=== PATIENT | female | born 1985 | race Caucasian/White ===

== ENCOUNTER 2024-12-14 09:28 | Day surgery (SDC) | payer SELFPAY ==
[2024-12-14] VITALS (7 sets, daily range): BP systolic 94–111; BP diastolic 54–80; PULSE 78–99; RESP 14–16; TEMP 2.2–37.4; O2SAT 97–100; BMI 24.2
--- NOTE | 2024-12-14 09:43 | PCM.PRE.AN2 ---
ASA Classification* ASA Classification ASA Classification: 2 Assessment & Plan Anesthesia* Anesthesia Assessment Anesthesia Assessment: Discussed sedation and/or anesthesia options, risks, benefits, and alternatives with patient/parents/legal guardian/POA. Questions invited. The patient/parents/legal guardian/POA seems to understand and agrees to proceed with anesthesia plan. Reviewed the physical assessment, medical history, allergy history and patient home medications list prior to surgery/procedure/anesthetic and documented any changes. Performed airway and anesthesia risk assessments. Anesthesia Type Anesthesia Type: MAC Anesthesia Focused Assessment* Airway Assessment Mouth opens: >3 cm Mallampati Score: II Focused Labs Anesthesia Preop lab: CBC CHEMISTRY COAG Pre-Assessment Diagnosis/Proposed Procedure Planned Operative Procedure(s): EXCISION LEFT AXILLA LIPOMA Anesthesia History Anesthesia History - strategic communications specialist: Anesthesia History - strategic communications specialist Hx Hospitalization No 11/30/24 08:22 Any Problems With Anesthesia No 11/30/24 08:22 Cholinesterase deficiency No 11/30/24 08:22 You/Your Family Experience No 11/30/24 08:22 fever (hyperthermia) with Relationship Recent Exposure to Contagious Disease Does patient have nerve No 11/30/24 08:22 stimulator Patient instructed to have device shut off --Does patient have Pacemaker or ICD? When Was Last Pacemaker Check QUESTION #4 FULL TEXT: You/Your Family Experience fever (hyperthermia) with Anesthesia Last Oral Intake Last Oral intake: Last Oral Intake NPO since Meds taken in AM with sips of water? Meds patient instructed to take am of surgery PONV PONV - strategic communications specialist: PONV - strategic communications specialist Female Yes 11/30/24 08:22 HX of Motion Sickness Yes 11/30/24 08:22 HX of N/V After Surgery No 11/30/24 08:22 Non-Smoker Yes 11/30/24 08:22 Duration of Surgery greater No 11/30/24 08:22 than 60 minutes Number of Risk Factors 3 11/30/24 08:22 PONV Score Moderate Risk 11/30/24 08:22 Height & Weight Height & Weight: Anesthesia: Height & Weight Height 5 ft 2 in 11/20/24 13:09 Respiratory Assessment Respiratory Assessment - strategic communications specialist: Respiratory Tract Infection Hx - strategic communications specialist Hx Respiratory Tract Infection No 11/30/24 08:22 STOP Sleep Apnea STOP Sleep Apnea - strategic communications specialist: STOP Sleep Apnea - strategic communications specialist Hx Hypertension No 11/30/24 08:22 Hx Sleep Apnea No 11/30/24 08:22 CPAP BIPAP Do you snore loudly (louder No 11/30/24 08:22 than talking or can be heard Do you often feel tired/ No 11/30/24 08:22 fatigued/ sleepy during daytime? Has anyone observed you stop No 11/30/24 08:22 breathing during sleep? STOP Results Negative 11/30/24 08:22 QUESTION #5 FULL TEXT : Do you snore loudly (louder than talking or can be heard through closed doors)? Tobacco Use History Tobacco Use History - strategic communications specialist: Tobacco Use History - strategic communications specialist Tobacco Use Smoking Status Never smoker 11/30/24 08:22 Hx Tobacco Use No 11/30/24 08:22 Years Smoking Packs Smoked per Day Smoking Cessation Date was within the last 15 years Hx Smoking Cessation Date Hx Smoking Cessation Counseling Hematologic Medial History Hematologic Hx - strategic communications specialist: Hematologic Medical Hx - wrecker operator Hx of Blood Transfusion No 11/30/24 08:22 Hx of Transfusion in last 3 No 11/30/24 08:22 Months Date of Last Transfusion (if within last 3 months) Ever experience any problems No 11/30/24 08:22 with transfusion(s)? Specify any problems Hx of Preganancy in last 3 No 11/30/24 08:22 Months Nurse Filling Out Transfusion DSCHRIBER 11/30/24 08:22 & Questions: Date: 11/30/24 11/30/24 08:22 Time: 08:24 11/30/24 08:22 Patient unable to answer at this time (ie. confused, unrespo /Reproduction History /Reproductive History - strategic communications specialist: /Reproductive Hx- strategic communications specialist Hx Now No 11/30/24 08:22 Gestational Age (in weeks): EDC: Hx Hx Para Hx Section SAB No 11/30/24 08:22 Active Medications Active Medications: Current Medications Generic Name Dose Route Start Last Admin Trade Name Freq PRN Reason Stop Dose Admin Cefazolin Sodium 2 gm/ N/A 20 mls @ 400 mls/hr 12/14/24 11:05 IV 12/14/24 11:07 PREOP ONE PFSH Medical History Wears glasses Wears dentures Restless legs Back pain Migraine headache Non-smoker Leg cramps Home Medications ?Medication ?Instructions ?Recorded ?Last Taken ?Type ascorbic acid (vitamin C) 1,000 mg 1 g PO QDAY 11/20/24 Unknown History capsule digestive enzymes 1 cap PO QDAY 11/20/24 Unknown History super supplement 1 cap PO DAILY 11/20/24 Unknown History dimenhydrinate 50 mg tablet 50 mg PO Q6H PRN motion sickness 11/30/24 Unknown History (Dramamine) Allergy/AdvReac Type Severity Reaction Status Date / Time No Known Allergies Allergy Verified 11/30/24 08:19 Family History Mother Hypertension Thyroid disorder Grandmother CVA (cerebral vascular accident) Aunt Diabetes Surgical History History of hysteroscopy History of umbilical hernia repair History of Social History Smoking Status: Never smoker Review of Systems (Anesthesia) ROS Narrative System reviewed and no additional complaints, except as documented.
--- NOTE | 2024-12-14 10:34 | HP.PCM_ITS ---
History and Physical Date of Admission: 12/14/24 Intake Vital Signs 11/20/2512:09 Height 5 ft 2 in Weight: 134 lb BMI 24.5 BP 110/73 Blood Pressure Location Rt brachial Position Sitting Respiration 18 Pulse 81 Pulse Source Monitor Temp 97 F L Temp Source Temporal Pulse Oximetry (%) 98 Oxygen Delivery Method room air Intake Visit Reasons: CYST UNDER ARMPIT Chief Complaint: cyst in axilla Is patient in pain?: No Allergies No Known Allergies Allergy (Verified 11/30/24 08:19) Medications ?Medication ?Instructions ?Recorded ?Confirmed ?Type ascorbic acid (vitamin C) 1,000 mg 1 g PO QDAY 11/20/24 11/30/24 History capsule digestive enzymes 1 cap PO QDAY 11/20/24 11/30/24 History super supplement 1 cap PO DAILY 11/20/24 11/30/24 History dimenhydrinate 50 mg tablet 50 mg PO Q6H PRN motion sickness 5 11/30/24 History (Dramamine) PFSH Medical History (Updated 11/30/24 @ 08:28 by Clarisa Jacobsen) Wears glasses Wears dentures Restless legs Back pain Migraine headache Non-smoker Leg cramps Surgical History (Updated 11/30/24 @ 08:28 by Clarisa Jacobsen) History of hysteroscopy History of umbilical hernia repair History of Family History (Updated 11/20/24 @ 13:09 by Marly Hernandez) Mother Hypertension Thyroid disorderGrandmother CVA (cerebral vascular accident)Aunt Diabetes Social History Smoking Status: Never smoker HPI HPI HPI: The patient has a mass on her left axilla. She says it has been growing. It is soft and nontender. ROS General General: No weight change, appetite, fatigue, colon cancer, breast cancer or weakness HEENT HEENT: No difficulty swallowing, eye injury, eye surgery, swollen glands or hoarseness Endo Endocrine: No thyroid disease, diabetes mellitus, thyroid cancer, Hair loss, heat intolerance or cold intolerance Skin Skin: No rash or changing moles Breast Breast: No left breast lump, right breast lump, nipple discharge, breast pain, abnormal mammogram, abnormal US or breast enlargement Musc Musculoskeletal: No back problems, arthritis, rheumatoid arthritis, gout or joint pain Cardio Cardiovascular: No murmur, pacemaker, heart disease, atrial fibrillation, high blood pressure, heart attack, heart stent, palpitations, shortness of breat with exertion or chest pain Psych Psychiatric: No depression, anxiety or hearing voices Resp Respiratory: No shortness of breath, No sleep apnea, No cough, No COPD, No asthma, No emphysema and No wheezing Gastro Gastrointestinal: No abdominal pain, No nausea or vomiting, No diarrhea, No constipation, No blood in stool, No acid reflux, No hemorrhoids, No ulcers, No gallbladder problem and No black,tarry stools [place] Hematologic: No blood thinners, No blood disorders, No bleeding, No anemia and No blood clots Neuro Neurologic: No system reviewed and no additional complaints, except as docume nted, No as per HPI, No abnormal gait, No abnormal hearing, No abnormal movements, No abnormal speech, No behavioral changes, No burning sensations, No confusion, No convulsions, No disequilibrium, No dizziness, No localized weakness, No frequent falls, No headache(s), No lack of coordination, No loss of vision, No memory loss, No numbness, No other visual disturbances, No radicular pain, No restless legs, No sensory deficit, No syncope, No tingling, No tremor(s), No weakness and No other Exam Const General: cooperative Orientation: alert and oriented x3 HENMT Head: normal to inspection Neck Neck: normal visual inspection and full ROM Chest Chest palpation & inspection: normal inspection of the chest Resp Effort & Inspection: normal respiratory effort Auscultation: clear to auscultation bilaterally Cardio Rate: regular rate Rhythm: regular rhythm GI Inspection: non-distended Palpation: soft and nontender Skin General: no rashes or lesions noted Neuro General: patient alert and patient oriented x3 Extrem General: full ROM Psych Appearance: grossly normal Mental Status: mental status grossly normal Assessment and Plan Assessment and Plan (1) Mass of left axilla: Status: Acute Plan: The patient has a large fatty mass that is outside of the axilla but in the axillary area. It is subcutaneous and I believe it is a large lipoma. She would like it removed as it is continuing to grow and is difficult to have full mobility. I discussed excising it and sent it for pathology. I discussed the risks including not limited to bleeding, infection, injury to nerves. Patient understands the risks and is willing to proceed. Jamie Josue MD Pager: [facility] [address] [place] [address], [address] [place] [address] Office: I have examined the patient and the H&P has been reviewed. There are no clinical changes since date of exam.
[2024-12-14] MEDS: Cefazolin 2 GM in Syringe IV (10:38)
--- NOTE | 2024-12-14 11:00 | LIP_PTH ---
PATIENT: ABI SRINIVASAN LOC: [facility] U#:[id number] AGE/SX: 39/F ROOM: RE12/14/[address]: Dr. Jamie Josue MD : 1985 BED: DIS: 12/14/2024 SPEC #: [id number] RECD: 12/14/24 13:31 STATUS: BOB RETanner #: [id number] FRANCA: 12/14/24 11:[address]: Jamie Josue DEPT: SURGICAL PATHOLOGY RECD BY: Gabriela Phillips ENTERED: 12/14/24 13:50 SP TYPE: LIPOMA OTHR DR: Starr Zamarripa, HOOK[facility] UP-C Tissues: Soft tissues, NOS Procedures: Surgery Specimen Level III HEADER OPERATION: Excision left axilla lipoma PRE-OP DIAGNOSIS: Mass of left axilla, post mass of left axilla TISSUE SUBMITTED: Left axilla lipoma MICROSCOPIC DIAGNOSIS Left axilla lipoma, excision: Mature adipose tissue consistent with lipoma. 12/15/2024 MICROSCOPIC DESCRIPTION Slides are reviewed. GROSS DESCRIPTION Received in fixative is one container labeled with the patient's name and designated lipoma. The specimen consists of an irregular piece of adipose tissue measuring 7 x 6.5 x 3 cm. Sections reveal yellow adipose cut surfaces without areas of hemorrhage, necrosis or cystic degeneration. Elementary Instructional Coach sections are submitted in four cassettes. 12/14/2024 TC:1 CPT:22727
[2024-12-14] MEDS: Lidocaine 1% /Epi 1:100 (20ml) 20 ML Vial (11:05)
--- NOTE | 2024-12-14 11:11 | OP.PCM_ITS ---
Operative Report (Standard) Operative Information Date of Procedure: 12/14/24 Pre-Operative Diagnosis: Left axillary lipoma Post-Operative Diagnosis: Left axillary lipoma Surgery/Procedure Performed: Left axillary lipoma removal licensed optical dispenser: No Type of Anesthesia: Local MAC RN Documented Start/Stop Times: Operation Date: 12/14/24 11:00 Case Time Into Pre-Op 12/14/24 09:46 Anesthesia Start 12/14/24 10:38 Into Room 12/14/24 10:38 Procedure Start 12/14/24 10:55 Procedure End 12/14/24 11:07 Anesthesia End 12/14/24 11:11 Out of Room 12/14/24 11:11 Procedure Start Time: 10:55 Procedure Stop Time: 11:07 Select all DRAINS/GRAFTS/IMPLANTS that apply: None Estimated Blood Loss: 5 Specimen collected: Yes Description of specimen(s) removed: Left axillary lipoma Description of surgery: Patient was brought back to the operating room and MAC anesthesia was induced. The left axillary area was prepped and draped in usual sterile fashion. The mass was located just posterior to the axilla. An area overlying was injected with local anesthesia. Incision was made with a scalpel and deepened to the subcutaneous fat. Electrocautery was used to gain hemostasis. It was dissected free circumferentially using electrocautery and sharp dissection. It was sent for pathology. The cavity was inspected and hemostasis was obtained using electrocautery. The area was irrigated and suctioned dry and there was good hemostasis. The dermis was closed with interrupted 3-0 Vicryl sutures. The skin was closed with a running 4-0 Monocryl suture. Dermabond was applied. Patient was taken to PACU in stable condition Surgical Findings: 6 cm lipoma Complications Complications: No Admit VTE Documentation VTE Mechan Device Prophylaxis: SCD's
--- NOTE | 2024-12-14 11:15 | PCM.POST.ANE ---
Anesthesia: Postop Eval I Current Vital Signs Temperature: 36 F Pulse Rate: 78 Blood Pressure: 97/54 Respiratory Rate: 16 Pulse Ox: 97 Oxygen Delivery Method: Nasal Cannula Oxygen Flow Rate (L/min): 2 Assessment Airway patent: Yes Spontaneous unlabored respirations: Yes Mental status: Asleep nausea: No Vomiting: No Anesthesia Complication: No Fluid Hydration Crystalloid volume administer (ml): 10 Total IV fluid infused: 10 Progress Note Anesthesia document: Postop Eval 1 completed: Yes
--- NOTE | 2024-12-14 11:20 | EX.PCM.DISCH ---
Discharge Instructions Diet Discharge Diet: Light diet - advance as tolerated Activity Discharge Activity: Return to Normal Activity, May Drive (when off narcotics) and May Shower Lifting Restrictions: 10 lbs for the first week, then no restrictions Additional Activity Instructions:: alternate Tylenol and ibuprofen for pain control, oxycodone for breakthrough pain. Dressing / Incision Call your doctor if your incision/area has: Continuous Slow Oozing, Sudden Increased Bleeding, Increased Pain/ Swelling, Increased Redness, Foul Smelling Discharge and Swelling at the incision site Call your doctor if you observe: Fever of 101 or Higher Cleanse incision/area with: Soap & Water Follow Up Care Please Follow Up With: Jamie Josue MD When: Please call to schedule 2 week follow up appointment. [phone] Test Results: Test results from this visit will be discussed in further detail at your follow-up appointment, if applicable. Discharge Plan Admission Attending Provider: Jamie Josue Primary Care Provider: Starr Zamarripa NP Instructions Print Language: [place] Discharge Orders/Prescriptions Prescriptions: New oxycodone 5 mg Tablet 5 mg PO Q4H PRN PRN (Reason: Pain Score 4-10) 5 Days Qty: 7 0RF No Action digestive enzymes Capsule 1 cap PO QDAY Rx Instructions: administer with food; swallow whole; do not crush/chew/dissolve/break/cut ascorbic acid (vitamin C) 1,000 mg capsule 1 g PO QDAY super supplement 1 cap PO DAILY dimenhydrinate [Dramamine] 50 mg tablet 50 mg PO Q6H PRN (Reason: motion sickness) Referrals / Follow Up: Starr Zamarripa NP, MANUFACTURING OPERATOR-C [Primary Care Provider] - Disposition Disposition (needs filled in before D/C Order can be placed): Home, Self Care
== END 2024-12-14 12:27 | disposition home or self-care (01) ==
LOC: SDC 09:35 → AC 10:30
PROVIDERS: PCP Nurse Practitioner Family; Referring Provider Surgery; Visit Provider Surgery
PROC: (CPT 11406; principal; 2024-12-14 10:45)
DX: D17.22 Benign lipomatous neoplasm of skin and subcutaneous tissue of left arm (principal)
CPT/HCPCS: 11406; 00400; 88304; A4216; J2405